=== PATIENT | male | born 1965 | race Caucasian/White ===

== ENCOUNTER 2024-06-17 11:05 | Emergency (ER) | payer BC, SELFPAY ==
--- NOTE | 2024-06-17 11:09 | EKG_ITS ---
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
[2024-06-17 11:19] VITALS: BP 146/79; PULSE 70; RESP 16; TEMP 36.6; O2SAT 98; BMI 26.2
--- NOTE | 2024-06-17 11:20 | XR_ITS ---
Examination: PA lateral chest 2 views TECHNIQUE: Upright AP lateral chest 2 views Exam date and time: June 17, 2024 1149 hours Comparison July 12, 2022 INDICATIONS: Chest pain today. FINDINGS: Normal heart size. Lungs are clear. The osseous structures are intact IMPRESSION: No active disease
--- NOTE | 2024-06-17 11:33 | PD.EDRME ---
Rapid Medical Screening Exam E Arrival date/time: 06/17/24 11:05 59-year-old male presents to the emergency department with complaints of intermittent left upper chest approximately 1 to 2 weeks. I have greeted and performed a focused initial assessment of this patient. Initial appropriate labs ordered at this time. A comprehensive ED assessment and evaluation of the patient and analysis of all test and completion of medical decision making process will be conducted by additional ED provider. Chief Complaint: Chest Pain Time Seen by Provider: 06/17/24 11:17 Vital signs: Vital Signs Temperature 97.9 F 06/17/24 11:19 Pulse Rate 70 06/17/24 11:19 Respiratory Rate 16 06/17/24 11:19 Blood Pressure 146/79 H 06/17/24 11:19 Pulse Oximetry (%) 98 06/17/24 11:19 Oxygen Delivery Method Room Air 06/17/24 11:19
[2024-06-17 11:55] LABS: Basophils % (Auto) 1 % (0-2.5); Eosinophils # (Auto) 0.1 Thou/mm3 (0.0-0.5); Eosinophils % (Auto) 1 % (0-10); Hematocrit 44.6 % (41.0-53.0); Hemoglobin 15.6 g/dL (13.5-16.0); Immature Granulocytes % (Auto) 0 % (0-0); Immature Granulocytes Auto 0.01 Thou/mm3 (0.00-0.00); Lymphocytes # (Auto) 1.7 Thou/mm3 (1.0-4.8); Lymphocytes % (Auto) 31 % (10-50); Mean Corpuscular Hemoglobin 29.5 pg (25.0-35.0); Mean Corpuscular Volume 85 fL (80-100); Monocytes # (Auto) 0.5 Thou/mm3 (0.0-0.8); Monocytes % (Auto) 9 % (0-12); Neutrophils # (Auto) 3.2 Thou/mm3 (1.8-7.7); Neutrophils % (Auto) 58 % (37-80); Nucleated Red Blood Cell % 0 /100 WBC (0); Platelet Count 250 Thou/mm3 (140-440); RDW Standard Deviation 37.8 fL (35.1-43.9); Red Blood Count 5.28 Miln/mm3 (4.50-5.90); White Blood Count 5.6 Thou/mm3 (3.8-10.6)
[2024-06-17 12:13] LABS: Alanine Aminotransferase 38 U/L (10-49); Albumin, Serum 5.3 gm/dL (3.5-5.0); Albumin/Globulin Ratio 1.9 (1.2-2.2); Alkaline Phosphatase 61 U/L (46-116); Anion Gap 6 (7-16); Aspartate Amino Transferase 32 U/L (0-34); BUN/Creatinine Ratio 11 Ratio (12-20); Bilirubin,Total 1.1 mg/dL (0.3-1.2); Blood Urea Nitrogen 10 mg/dL (9-23); Carbon Dioxide 28.9 mMol/L (20.0-31.0); Chloride 106 mMol/L (98-107); Creatinine (Component) 0.9 mg/dL (0.6-1.3); Estimated Creatinine Clearance 88.4 mL/min (>60); Globulin 2.8 gm/dL (2.3-3.5); Glucose 95 mg/dL (74-106); Lipase 52 U/L (12-53); Osmolality,Calculated 280 (275-295); Potassium 4.7 mMol/L (3.4-5.1); Sodium 141 mMol/L (136-145); Total Protein 8.1 gm/dL (5.7-8.2); Troponin I < 0.002 ng/mL (0.0-0.045); eGFR > 60 See Note
[2024-06-17 14:56] LABS: Collection Type, Urine Clean Catch; Squamous Epithelial Cell,Urine 0 /hpf (0-5)
[2024-06-17 14:58] LABS: Bilirubin,Urine Negative (Negative); Blood,Urine Trace (Negative); Clarity,Urine Clear (Clear/Hazy); Color,Urine Lt-Yellow (Lt Yel-Yel); Glucose, Urine Negative (Negative); Ketones,Urine Negative (Negative); Leukocyte Esterase,Urine Negative (Negative); Nitrite,Urine Negative (Negative); Protein,Urine Negative (Neg - Trace); RBC,Urine 5 /hpf (0-3); Urobilinogen,Urine Negative mg/dL (0.0-1.0); WBC,Urine 1 /hpf (0-5)
--- NOTE | 2024-06-17 15:07 | PD.EDCHEST ---
ED Chest Pain RME/HPI General Chief Complaint: Chest Pain Stated Complaint: LEFT CHEST/ARM PAIN ON/OFF FOR 7 DAYS Time Seen by Provider: 06/17/24 11:17 Arrival date/time: 06/17/24 11:05 RME / HPI RME / HPI narrative: 06/17/24 11:05 59-year-old male presents to the emergency department with complaints of intermittent left upper chest approximately 1 to 2 weeks. I have greeted and performed a focused initial assessment of this patient. Initial appropriate labs ordered at this time. A comprehensive ED assessment and evaluation of the patient and analysis of all test and completion of medical decision making process will be conducted by additional ED provider. DR. WARREN MAIN ED EVALUATION: 59 year old male presents to the Emergency Department with complaint of left-sided chest pain that radiated to the left arm. Pain is intermittent, onset 7-10 days. Pain described as aching and moderate. Patient was seen at the clinic today at [place] and was sent here for further evaluation. No shortness of breath or other symptoms reported. PMHx: Hypertension and diabetes. FAM Hx: Cardiac history- father, sister, mother SOCIAL Hx: None Related Data Home Medications ?Medication ?Instructions ?Recorded ?Confirmed amlodipine 10 mg tablet 10 mg PO QDAY 07/12/22 07/12/22 rosuvastatin 10 mg tablet 10 mg PO QPM 07/12/22 07/12/22 Allergies Allergy/AdvReac Type Severity Reaction Status Date / Time Penicillins Allergy Severe Hives Verified 06/17/24 11:08 Review of Systems Review of Systems Systems Reviewed: All systems reviewed, normal except as documented Narrative Review of Systems: GEN: No fever, no chills, no weight loss EYES: No discharge, no visual changes, no pain HEENT: No ear pain, no congestion, no sore throat PULM: No shortness of breath, no cough, no congestion CV: + left-sided chest pain that radiated to the left arm, no dyspnea on exertion, no palpitations GI: No nausea, no vomiting, no diarrhea, no pain, no constipation : No frequency, no urgency and no dysuria MUSC/SKEL: + left arm pain, no back pain SKIN: No rash PSYCH: No hallucinations, no depression HEME/LYMPH: No easy bleeding or bruising tendencies NEURO: No weakness, no headache Past Medical History Past Medical History CARDIAC: Positive Cardiac Disorders and Hypercholesterolemia; Negative Congestive Heart Failure RESPIRATORY: Negative Chronic Obstructive Pulmonary Disease (COPD) or Asthma GASTROINTESTINAL: Positive Ulcer GENITOURINARY: Negative Renal Disease MUSCULOSKELETAL: Positive Musculoskeletal Disorders ENDOCRINE: Negative Diabetes Mellitus Type 1 or Diabetes Mellitus Type 2 HEMATOLOGIC: Negative Sickle Cell Disease Family History FAMILY HISTORY: Positive Family Cardiac Disorders Social History SMOKING STATUS: Never smoker SUBSTANCE USE: does not use ALCOHOL: Never ED Exam Narrative Physical exam: GENERAL APPEARANCE: alert and oriented x 4, well-developed, well-nourished, no acute distress VITALS: All vitals were reviewed and the pulse ox is 98% on room air, which is normal according to my interpretation. HEENT: Normocephalic, atraumatic; pupils equal, round, reactive to light; EOMI; mucous membranes pink, moist; oropharynx clear NECK: Supple LUNGS: CTABL; no wheezes, no rales, no rhonchi HEART: Regular rate, regular rhythm; normal S1, S2; no murmurs ABDOMEN: non distended; normal BS; soft, no tenderness, no guarding, no rebound; no masses, no organomegaly, no hernia BACK: no CVA tenderness EXTREMITIES: atraumatic; no edema NEUROLOGIC: awake; alert and oriented x4; cranial nerves II-XII grossly intact; no focal sensory or motor deficits PSYCHIATRIC: appropriate mood and affect SKIN: warm, dry, normal color; no rashes Course Quality Measures none Orders Category Date Time Status EKG (ED ONLY) *Do not use* NOW Care 06/17/24 11:09 Completed NPO STAT Care 06/17/24 11:20 Completed EKG (ED Only) Stat Exams 06/17/24 11:09 Ordered XR chest 2V Stat Exams 06/17/24 11:20 Completed CBC Stat Lab 06/17/24 11:34 Completed Comprehensive Metabolic Panel Stat Lab 06/17/24 11:34 Completed Lipase Stat Lab 06/17/24 11:34 Completed Magnesium Stat Lab 06/17/24 11:34 Completed Troponin I Stat Lab 06/17/24 11:34 Completed Troponin I Stat Lab 06/17/24 14:49 Completed Urinalysis Stat Lab 06/17/24 14:30 Completed Reevaluation(s) Reevaluation #1: First and second troponin tests are both negative. Patient remains clinically stable throughout the emergency department visit. Re-assessment at the time of disposition demonstrates that the patient is in no acute distress. We reviewed all the results, analysis, and treatment plans. Patient is amenable to discharge. Strict return precautions were outlined. Patient was discharged in stable condition. Time: 16:20 Vital Signs Vital signs: Vital Signs Temperature 97.9 F 06/17/24 11:19 Pulse Rate 70 06/17/24 11:19 Respiratory Rate 16 06/17/24 11:19 Blood Pressure 146/79 H 06/17/24 11:19 Pulse Oximetry (%) 98 06/17/24 11:19 Oxygen Delivery Method Room Air 06/17/24 11:19 Chest Pain MDM Narrative MDM Narrative:: I, Chante Sam am scribing for and in the presence of Dr. Warren. Patient data [place] [facility] [place]Reviewed last ED visit dated 07/31/22, discharged with the following: Chest pain, non-cardiac) Clinical information provided by:: patient and spouse Social determinants that could affect healthcare access:: none Patient has the following chronic illnesses:: Hypertension and diabetes. How is presenting disease/condition affected by chronic disease/condition?: exacerbated by Evaluation data The following diagnostics were reviewed and interpreted by me:: lab results and radiology exam(s) Lab and/or radiology exams considered but not ordered:: none Interpretation Summary: Procedure(s): XR chest 2V Accession Number(s): [id number] cc: Mitchell Pinon MD; Tu Perera MD; Gege Ramirez~ Examination: PA lateral chest 2 views TECHNIQUE: Upright AP lateral chest 2 views Exam date and time: June 17, 2024 1149 hours Comparison July 12, 2022 INDICATIONS: Chest pain today. FINDINGS: Normal heart size. Lungs are clear. The osseous structures are intact IMPRESSION: No active disease Dictated By: Tu Perera MD Medications / Prescriptions Medications or Prescriptions considered but not ordered:: none Medication administrations:: see above if any Consultations Consultation(s) initiated? (list below): No Diagnosis Chest Pain Differential Diagnosis: atypical chest pain, costochondritis and chest pain Most likely diagnosis given after review of the tests above:: Chest pain Microscopic hematuria Admission Indicated Admission indicated?: not indicated Admission Request Was there a request for admission?: No Disposition Plan Disposition Plan: Discharge Discharge Attestation Discharge Attestation: The patient and all family members were given an opportunity to ask questions and understood the discharge instructions. Discharge instructions specifically effects, indications for sooner follow up or return to the emergency department, and the expected course of current diagnosis. Patient condition: Stable Discharge Plan Plan Patient Disposition: HOME (Self Care) Prescriptions/Referrals Prescriptions/Med Rec: No Action amlodipine 10 mg Tablet 10 mg PO QDAY rosuvastatin 10 mg Tablet 10 mg PO QPM Referrals: Mitchell Pinon MD [Primary Care Provider] - In 1 week Problem List Clinical Impression: Chest pain, Microscopic hematuria Patient/Caregiver Discharge Instructions Education Materials: ED Chest Pain, Uncertain Cause, ED Hematuria Additional Instructions: Follow-up with your doctor for repeat urinalysis and further workup Print Language: Guatemalan Stand Alone Forms: Jeanette Award Info., Patient Portal Info Letter
[2024-06-17 15:30] LABS: Troponin I < 0.002 ng/mL (0.0-0.045)
== END 2024-06-17 16:30 | disposition home or self-care (01) ==
PROVIDERS: Nurse Practitioner Primary Care; Emergency Provider Emergency Medicine; PCP Internal Medicine
DX: R07.89 Other chest pain (principal); R31.29 Other microscopic hematuria; I49.8 Other specified cardiac arrhythmias; I10 Essential (primary) hypertension; E78.00 Pure hypercholesterolemia, unspecified
CPT/HCPCS: 36415; 71046; 80053; 81001; 83690; 83735; 84484; 85025; 93005; 99283